=== PATIENT | female | born 1945 | race Caucasian/White ===

== ENCOUNTER → 2020-03-28 | Outpatient (CLI) | payer MEDICARE ==
[~2020-03-28] MED LIST: CLON-527 PO; DEXL60CA3 PO; ENOX40SY7 SQ; HYDR25TA4 PO; POTA20TA19 PO; SERT25TA PO; SUCR1TAB34 PO
== END | disposition home or self-care (01) ==
LOC: CARD DIAG 12:24
PROVIDERS: ATTEND Internal Medicine Cardiovascular Disease
DX: I08.0 Rheumatic disorders of both mitral and aortic valves (principal)
CPT/HCPCS: 93306

== ENCOUNTER 2020-09-05 19:08 | Emergency (ER) | payer MEDICARE ==
[~2020-09-05] VITALS: Ht 170.2 cm; Wt 94.5 kg
[2020-09-05] MEDS ORDERED: HYDROcodone/acetaminophen 5mg/325mg tablet PO STA (19:19)
[2020-09-05 20:27] VITALS: BP 129/87
--- NOTE | 2020-09-05 20:29 | NUR ---
Pt states she [place] Tuesday [place] the [place] the [employer] [place] landing on L elbow and left rib area.
[2020-09-05] MEDS ORDERED: ketorolac tromethamine 15mg/ml inj. IM ONE (20:50)
== END 2020-09-05 21:07 | disposition home or self-care (01) ==
LOC: ER 19:10
DX: J90 Pleural effusion, not elsewhere classified (principal); M25.512 Pain in left shoulder; M19.90 Unspecified osteoarthritis, unspecified site; F41.9 Anxiety disorder, unspecified; Z98.890 Other specified postprocedural states; Z88.8 Allergy status to other drugs, medicaments and biological substances; Z79.899 Other long term (current) drug therapy
CPT/HCPCS: 71046; 96372; 99284; J1885

== ENCOUNTER 2021-09-02 10:19 | Emergency (ER) | payer MEDICARE ==
[~2021-09-02] VITALS: Ht 170.2 cm; Wt 95.4 kg
[~2021-09-02 10:19] MED LIST changes: +POTA-207 PO; -POTA20TA19 PO
--- NOTE | 2021-09-02 10:45 | NUR ---
Pt is writhing in the bed. C/O pain in R shoulder that radiates down her arm. Pain started this morning while she was organizing her closet and she had a few episode yesterday that resolved.
[2021-09-02] MEDS ORDERED: aspirin 325mg tablet PO ONE (11:00)
[2021-09-02] MEDS ORDERED: morphine 4 MG/ML inj SYRINge IV ONE ×2 (11:15→12:15)
[2021-09-02] MEDS ORDERED: ondansetron/PF 4mg/2ml inj IV ONE (11:15)
[2021-09-02 11:18] LABS: BASOPHILS % (AUTO) 0.6 % (0-1); EOSINOPHILS % (AUTO) 0.7 % (0-6); HEMATOCRIT 37.7 % (35.0-45.0); HEMOGLOBIN 12.5 g/dl (12.0-16.0); LYMPHOCYTES # (AUTO) 1.8 X10'3 (1.1-4.8); LYMPHOCYTES % (AUTO) 32.3 % (21-51); MEAN CORPUSCULAR HEMOGLOBIN 30.2 PG (27.0-31.0); MEAN CORPUSCULAR HGB CONC 33.2 g/dL (33.0-36.5); MEAN PLATELET VOLUME 9.6 FL (7.4-10.4); MONOCYTES # (AUTO) 0.6 X10'3 (0-0.9); MONOCYTES % (AUTO) 9.9 % (2-12); NEUTROPHILS # (AUTO) 3.2 X10'3 (1.8-7.7); NEUTROPHILS % (AUTO) 56.5 % (42-75); PLATELET COUNT 264 X10'3 (140-440); RED BLOOD COUNT 4.14 X10'6 (4.20-5.60); RED CELL DISTRIBUTION WIDTH 13.9 % (11.5-14.5); WHITE BLOOD COUNT 5.7 X10'3 (4.5-11.0)
[2021-09-02 11:32] LABS: ALANINE AMINOTRANSFERASE 37 U/L (12-78); ALBUMIN 3.3 G/DL (3.4-5.0); ALBUMIN/GLOBULIN RATIO 0.8 (1.1-1.5); ALKALINE PHOSPHATASE 90 IU/L (46-116); ANION GAP 8 (8-16); ASPARTATE AMINO TRANSFERASE 31 U/L (10-37); BLOOD UREA NITROGEN 17 MG/DL (7-18); BUN/CREATININE RATIO 22.4 (6.6-38.0); CALCIUM 9.1 MG/DL (8.5-10.1); CHLORIDE 95 MMOL/L (99-107); CREATININE 0.76 MG/DL (0.40-0.90); GLUCOSE 123 MG/DL (70-104); POTASSIUM 3.4 MMOL/L (3.5-5.1); SODIUM 132 MMOL/L (135-145); TOTAL CARBON DIOXIDE 28.6 MMOL/L (24-32); TOTAL PROTEIN 7.3 G/DL (6.4-8.2); eGFR 74 ML/MIN
[2021-09-02 11:46] LABS: BILIRUBIN,TOTAL 0.3 MG/DL (0.1-1.0)
--- NOTE | 2021-09-02 11:55 | NUR ---
Pain has become severe and is in anterior chest, described as heavy.
[2021-09-02] MEDS ORDERED: ketorolac tromethamine 15mg/ml inj. IV ONE ×2 (12:05→13:15)
[2021-09-02] MEDS ORDERED: normal saline 1000ml 1,000 ML IV ONE (12:05)
[2021-09-02] MEDS ORDERED: iohexol 350MG/ML 100ml bottle IV ONE (12:23)
[2021-09-02 12:25] VITALS: BP 175/91
[2021-09-02] MEDS ORDERED: HYDROcodone/acetaminophen 5mg/325mg tablet PO ONE (13:20)
[2021-09-02] MEDS ORDERED: acetaminophen 325mg tablet PO ONE (13:20)
[2021-09-02] MEDS ORDERED: orphenadrine citrate 60mg/2ml inj. IM ONE (13:25)
[2021-09-02] MEDS ORDERED: HYDR-3965 PO (13:54)
[2021-09-02] MEDS ORDERED: ONDA4TAB12 PO (13:54)
--- NOTE | 2021-09-02 14:10 | NUR ---
Pt and daughter given and understands d/c instructions. IV d/c'd, catheter was intact. Ambulatory with a steady gait.
== END 2021-09-02 14:10 | disposition home or self-care (01) ==
LOC: ER 10:19
DX: M25.511 Pain in right shoulder (principal); M79.601 Pain in right arm; I10 Essential (primary) hypertension; M19.90 Unspecified osteoarthritis, unspecified site; F41.9 Anxiety disorder, unspecified; Z98.890 Other specified postprocedural states; Z88.8 Allergy status to other drugs, medicaments and biological substances; Z79.899 Other long term (current) drug therapy
CPT/HCPCS: 36415; 71045; 71275; 80053; 83880; 84484; 85025; 93005; 96361; 96372; 96374; 96375; 96376; 99285; J1885; J2270; J2360; J2405; J7030; Q9967

== ENCOUNTER 2022-02-11 08:10 | Emergency (ER) | payer MEDICARE ==
[~2022-02-11] VITALS: Ht 170.2 cm; Wt 95.5 kg
[~2022-02-11 08:10] MED LIST changes: +ONDA4TAB12 PO
[2022-02-11 08:38] VITALS: BP 142/73
[2022-02-11] MEDS ORDERED: HYDROcodone/acetaminophen 10/325mg tab PO ONE (08:55)
[2022-02-11] MEDS ORDERED: ketorolac trometh inj. 60 MG/2 ML VIAL IM ONE (08:55)
[2022-02-11] MEDS ORDERED: orphenadrine citrate 60mg/2ml inj. IM ONE (08:55)
[2022-02-11] MEDS ORDERED: LIDO700A32 TOP (10:12)
[2022-02-11] MEDS ORDERED: ORPH100T2 PO (10:12)
[2022-02-11] MEDS ORDERED: HYDR-3965 PO (10:12)
== END 2022-02-11 10:32 | disposition home or self-care (01) ==
LOC: ER 08:11
DX: M54.41 Lumbago with sciatica, right side (principal); G89.29 Other chronic pain; I10 Essential (primary) hypertension; F41.9 Anxiety disorder, unspecified; Z88.8 Allergy status to other drugs, medicaments and biological substances; Z79.899 Other long term (current) drug therapy
CPT/HCPCS: 96372; 99284; J1885; J2360

== ENCOUNTER 2022-07-17 16:17 | Emergency (ER) | payer MEDICARE ==
[~2022-07-17] VITALS: Ht 167.6 cm; Wt 95.4 kg
[~2022-07-17 16:17] MED LIST changes: +LIDO700A32 TOP; +ORPH100T2 PO
[2022-07-17 16:25] VITALS: BP 146/80
[2022-07-17] MEDS ORDERED: LIDOcaine 5% patch TP STA (20:28)
[2022-07-17] MEDS ORDERED: OXYC-145 PO (20:34)
== END 2022-07-17 20:53 | disposition home or self-care (01) ==
LOC: ER 16:18
DX: M25.552 Pain in left hip (principal); M54.50 Low back pain, unspecified; M54.2 Cervicalgia; M19.90 Unspecified osteoarthritis, unspecified site; I10 Essential (primary) hypertension; G89.29 Other chronic pain; F41.9 Anxiety disorder, unspecified; Z98.890 Other specified postprocedural states; Z88.8 Allergy status to other drugs, medicaments and biological substances; Z79.899 Other long term (current) drug therapy; W18.39XA Other fall on same level, initial encounter; Y93.89 Activity, other specified; Y92.89 Other specified places as the place of occurrence of the external cause; Y99.8 Other external cause status
CPT/HCPCS: 20552; 73502; 99284